=== PATIENT | female | born 1990 | race African-American/Black ===

== ENCOUNTER 2018-09-08 01:10 | Observation (INO) | payer MEDICAID | END 2018-09-08 02:25 | disposition home or self-care (01) | LOC: 8 EST LDRP 01:10 | PROVIDERS: ADMIT Specialist; ATTEND Specialist | DX: O26.893 Other specified pregnancy related conditions, third trimester (principal); O48.0 Post-term pregnancy; R10.9 Unspecified abdominal pain; Z3A.40 40 weeks gestation of pregnancy | CPT/HCPCS: 99281; G0378 ==